=== PATIENT | male | born 1985 | race Caucasian/White ===

== ENCOUNTER 2021-05-14 17:32 | Emergency (ER) | payer OTHER ==
[~2021-05-14] VITALS: Ht 180.3 cm; Wt 74.8 kg
[2021-05-14] MEDS ORDERED: BACITRACIN28.4 GM TOP (19:56)
[2021-05-14] MEDS ORDERED: HYDROCODON-ACE1 EA10 PO (19:56)
== END 2021-05-14 22:50 | disposition short-term general hospital (02) ==
LOC: ED 17:32
DX: S92.111A Displaced fracture of neck of right talus, initial encounter for closed fracture (principal); S30.810A Abrasion of lower back and pelvis, initial encounter; S40.812A Abrasion of left upper arm, initial encounter; V89.2XXA Person injured in unspecified motor-vehicle accident, traffic, initial encounter
CPT/HCPCS: 70450; 71045; 71260; 72125; 73610; 73700; 74177; 80053; 83605; 85025; 90471; 90715; 96375; 96376; 99285-25; C9803; G0480; J1170; J1885; Q9967; U0003